=== PATIENT | female | born 1965 | race Two or more races ===

== ENCOUNTER 2024-05-17 13:43 | Emergency (ER) | payer OTHER ==
[~2024-05-17] VITALS: Ht 165.1 cm; Wt 95.3 kg
[2024-05-17] MEDS ORDERED: GUAIFENESIN/DEXTROMETHORPHAN 10ML BLIST.PACK PO ONE (17:00)
[2024-05-17] MEDS ORDERED: TUSSIN DM LIQU118 ML PO (19:05)
[2024-05-17] MEDS ORDERED: KETOROLAC TROMETHAMINE 60 MG VIAL IM ONE (19:15)
== END 2024-05-17 19:15 | disposition home or self-care (01) ==
LOC: ER 13:45
DX: S52.591A Other fractures of lower end of right radius, initial encounter for closed fracture (principal); W18.39XA Other fall on same level, initial encounter; Y93.K1 Activity, walking an animal; Y92.488 Other paved roadways as the place of occurrence of the external cause; Y99.9 Unspecified external cause status